=== PATIENT | male | born 1950 | race Caucasian/White ===

== ENCOUNTER 2023-11-12 10:23 | Emergency (ER) | payer MEDICARE, SELFPAY ==
[2023-11-12] VITALS (20 sets, daily range): BP systolic 98–130; BP diastolic 52–80; PULSE 60–103; RESP 12–20; TEMP 36.6; O2SAT 94–98
--- NOTE | ~2023-11-12 | XR_ITS ---
EXAMINATION: XR chest 2V DATE: 11/12/2023 11:09 INDICATION: Syncope. TECHNIQUE: Frontal and lateral views of the chest were obtained. COMPARISON: None. FINDINGS: There is no pneumonia, pleural effusion, or pneumothorax. The heart size is normal. IMPRESSION: 1. No acute cardiopulmonary disease. Reviewed, dictated and finalized at location A. NSE INSPECTOR
--- NOTE | 2023-11-12 10:26 | ECG_ITS ---
Measurements Intervals [place] Rate: 89 P: 67 WV: 164 QRS: 20 QRSD: 82 T: 64 QT: 355 QTc: 434 Interpretive Statements SINUS RHYTHM LOW QRS VOLTAGE- DIFFUSE LEADS BASELINE ARTIFACT- I, III, AVR, AVL, AVF, V1-V3 CONSIDER ANTEROSEPTAL INFARCT, AGE INDETERMINATE BORDERLINE ST-T WAVE ABNORMALITY- HIGH LATERAL LEADS ABNORMAL ECG NO PREVIOUS ECG AVAILABLE FOR COMPARISON Electronically Signed On 11-12-2023 15:26:55 [employer]ARING SUPERVISOR by Manuel Chávez D.O.
--- NOTE | 2023-11-12 10:37 | ED.GENADULT ---
HPI - General Adult General Chief complaint: Syncope Stated complaint: Syncopal event yesterday Time Seen by Provider: 11/12/23 10:26 History of Present Illness HPI narrative: Patient is a 73-year-old male who presents ER with concerns for syncopal event that occurred yesterday evening. It occurred after dinner. He is getting up from the table to wash dishes when he got lightheaded and went to the ground. was present reports she did not think he fully lost consciousness and he did not strike his head. There were 3 people around to support him. Patient reports he had a colonoscopy earlier in the week. He has been feeling weak since then. feels like he has also been off since having the colonoscopy. No fevers or chills or sweats. No continued diarrhea. Patient denies chest pain or shortness of breath. No racing of the heart. Related Data Allergies Allergy/AdvReac Type Severity Reaction Status Date / Time No Known Allergies Allergy Verified 11/12/23 10:51 Review of Systems Review of Systems: All systems reviewed & are unremarkable except as noted in HPI and below Constitutional: Constitutional: Denies chills, Reports fatigue and Denies fever(s) ENT: Reports system reviewed and no additional complaints, except as documented Cardiovascular: Cardiovascular: Reports no additional cardiovascular complaints Respiratory: Respiratory: Reports no additional respiratory complaints Gastrointestinal: Gastrointestinal: Reports no additional gastrointestinal complaints Musculoskeletal: Musculoskeletal: Reports no additional musculoskeletal complaints Neurologic: Reports syncope, Denies headache(s), Denies focal weakness and Denies numbness PMFSH Past Medical History Medical History (Updated 11/12/23 @ 12:01 by Carson Foote MD) Diabetes Hypertension Surgical History Surgical History (Updated 11/12/23 @ 10:39 by Carson Foote MD) History of colonoscopy Exam Narrative: GENERAL: Well-appearing, well-nourished, and in no acute distress. HEAD: Normocephalic, atraumatic. ENT: Mucous membranes moist. NECK: Supple. CHEST: Clear to auscultation. No respiratory distress. HEART: Regular rate and rhythm. Normal peripheral pulses. ABDOMEN: Soft, nontender, nondistended. EXTREMITIES: Normal range of motion. No edema. SKIN: Warm, dry, no rash. NEURO: Alert and oriented x3. PSYCH: Normal mood and affect. Course Course Emergency Course: Patient resting comfortably. Informed of results. Mildly elevated BUN. Blood pressure dropped with lying to sitting. Discharge home. Vital Signs Vital signs: Vital Signs Pulse Oximetry 94 11/12/23 10:30 Oxygen Delivery Room Air 11/12/23 10:30 Temperature 97.9 F 11/12/23 10:46 Pulse Rate 94 11/12/23 10:46 Respiratory Rate 16 11/12/23 10:46 Blood Pressure 130/69 11/12/23 10:46 Pulse Oximetry 95 11/12/23 10:46 Oxygen Delivery Room Air 11/12/23 10:46 Medical Decision Making Vital Signs Vital Signs: Vital Signs Pulse Oximetry 94 11/12/23 10:30 Oxygen Delivery Room Air 11/12/23 10:30 Temperature 97.9 F 11/12/23 10:46 Pulse Rate 94 11/12/23 10:46 Respiratory Rate 16 11/12/23 10:46 Blood Pressure 130/69 11/12/23 10:46 Pulse Oximetry 95 11/12/23 10:46 Oxygen Delivery Room Air 11/12/23 10:46 Lab Data 11/12/23 10:37 11/12/23 10:37 Labs: Lab Results 11/12/23 11/12/23 Range/Units 10:37 10:39 WBC 6.7 (4.5-10.0) K/mm3 RBC 5.01 (4.6-6.20) M/mm3 Hgb 15.4 (14.0-18.0) g/dL Hct 45.9 (42.0-52.0) % MCV 91.6 (80-100) fl MCH 30.7 (26-34) pg MCHC 33.6 (32-36) g/dl RDW 11.6 (11.5-14.5) % Plt Count 208 (150-375) k/mm3 MPV 10.3 (7.4-10.4) fl Immature Gran % (Auto) 0.1 (0-0.5) % Neut % (Auto) 70.3 (45.5-73.1) % Lymph % (Auto) 22.3 (18.3-44.2) % [place] % (Auto) 5.5 (2.6-8.5) % Eos % (Auto) 1.5 (0-
[2023-11-12 10:49] LABS: Basophils Percent Auto 0.3 % (0.2-1.2); Eosinophils Absolute Auto 0.1 K/mm3 (0-0.3); Eosinophils Percent Auto 1.5 % (0-4.4); Hematocrit 45.9 % (42.0-52.0); Hemoglobin 15.4 g/dL (14.0-18.0); Immature Granulocyte Absolute 0.01 K/mm3 (0.00-0.031); Immature Granulocyte Percent A 0.1 % (0-0.5); Lymphocytes Percent Auto 22.3 % (18.3-44.2); Mean Corpuscular HGB Conc 33.6 g/dl (32-36); Mean Corpuscular Hemoglobin 30.7 pg (26-34); Mean Corpuscular Volume 91.6 fl (80-100); Mean Platelet Volume 10.3 fl (7.4-10.4); Monocytes Absolute Auto 0.4 K/mm3 (0.1-0.6); Monocytes Percent Auto 5.5 % (2.6-8.5); Neutrophils Absolute Auto 4.7 K/mm3 (1.3-6.7); Neutrophils Percent Auto 70.3 % (45.5-73.1); Platelet Count Result 208 k/mm3 (150-375); Red Blood Count 5.01 M/mm3 (4.6-6.20); Red Cell Distribution Width 11.6 % (11.5-14.5); White Blood Count 6.7 K/mm3 (4.5-10.0)
[2023-11-12] MEDS: SODIUM CHLORIDE 0.9% IV 1,000 ML 999 ML IV CONT (10:58)
[2023-11-12 11:02] LABS: Alanine Aminotransferase 31 U/L (6-50); Albumin Level 4.5 g/dL (3.5-5.1); Alkaline Phosphatase 92 U/L (38-126); Anion Gap 9 mmol/L (8-16); Aspartate Amino Transferase 26 U/L (17-59); Bilirubin,Total 0.8 mg/dL (0.2-1.3); Blood Urea Nitrogen 25 mg/dL (9-20); Calcium 9.5 mg/dL (8.4-10.2); Carbon Dioxide 30 mmol/L (22-30); Chloride 98 mmol/L (98-107); Estimated CRCL calculation 68 ml/min; Estimated Glomerular Filt Rate > 60; Glucose 289 mg/dL (65-110); Potassium 4.3 mmol/L (3.4-5.0); Sodium 137 mmol/L (137-145)
[2023-11-12 11:32] LABS: Influenza A QL RT-PCR Negative (Negative); Influenza B QL RT-PCR Negative (Negative); RSV RNA, RT-PCR Negative (Negative); SARS-CoV-2 RNA PCR Negative (Negative)
== END 2023-11-12 12:21 | disposition home or self-care (01) ==
PROVIDERS: Emergency Provider Emergency Medicine; PCP Family Medicine
DX: E86.0 Dehydration (principal); Z20.822 Contact with and (suspected) exposure to COVID-19; E11.9 Type 2 diabetes mellitus without complications; I10 Essential (primary) hypertension; R94.31 Abnormal electrocardiogram [ECG] [EKG]
CPT/HCPCS: 36415; 71046; 80053; 85025; 87637; 93005; 96360; 99284; J7030